=== PATIENT | female | born 1985 | race Caucasian/White ===

== ENCOUNTER 2017-08-04 20:04 | Emergency (ER) | payer BC ==
--- NOTE | 2017-08-04 20:43 | UC ---
Headache HPI - HPI Summary HPI Summary: 31 tear old female with nausea and sinus tenderness. sx x1 week--had sore throat and chills over the weekend, early this week had pain in right side; all of those sx have resolved; yesterday started with sinus headache, denies congestion, no cough. Since yesterday can not break the band headache across the head and has tried APAP and Motrin yesterday. No motrin today. (+) Photophobia slightly. RALPH 4 or 5 / 10. Not worst RALPH of life. [ End ] - History Of Current Complaint Stated Complaint: HEADACHE,NAUSEA Time Seen by Provider: 08/04/17 20:42 Hx Obtained From: Patient Onset/Duration: Gradual Onset - Allergies/Home Medications Allergies/Adverse Reactions: Allergies Allergy/AdvReac Type Severity Reaction Status Date / Time No Known Allergies Allergy Verified 08/04/17 20:46 Home Medications: Home Medications Levonorgestrel (Iud) [Mirena IUD] 20 mcg IU DAILY 08/04/17 [History Confirmed ] PMH/Surg Hx/FS Hx/Imm Hx Previously Healthy: Yes - Surgical History Surgical History: Yes Surgery Procedure, Year, and Place: 2 c-sections - Family History Known Family History: Negative: Cardiac Disease, Seizure Disorder - Social History Occupation: Employed Full-time - [employer] Lives: With Family Alcohol Use: Rare Review of Systems Eyes: Photophobia ENT: Sinus Pain/Tenderness Gastrointestinal: Nausea Neurological: Headache All Other Systems Reviewed And Are Negative: Yes Physical Exam Triage Information Reviewed: Yes Appearance: Well-Appearing, No Pain Distress, Well-Nourished Vital Signs Reviewed: Yes Eye Exam: Normal ENT Exam: Normal ENT: Positive: Pharynx normal, TM dull - left, TM red. Negative: Nasal congestion, TM bulging, Tonsillar swelling, Tonsillar exudate Dental Exam: Normal Neck exam: Normal Neck: Positive: 1 Respiratory Exam: Normal Cardiovascular Exam: Normal Musculoskeletal Exam: Normal Neurological Exam: Normal Psychological Exam: Normal Skin Exam: Normal Re-Evaluation - Re-Evaluation First Eval Change: Unchanged - still with RALPH and with nausea -- given zofran and given norco 1 pill at this time to take home and if RALPH tonight and having difficulty sleeping then can take the norco. she is agreeable Headache Course/Dx - Course Course Of Treatment: with photophobia did use toradol to try to break the RALPH and little improvement . Advised if RALPH worsens then go to ED for further eval. Not worse RALPH of life and still at 4 or 5 / 10 but persistant and since no sleep last night will offer 1 pill of norco if needed for RALPH for later tonight. - Differential Dx/Diagnosis Differential Diagnosis/HQI/PQRI: Migraine, Tension Headache Provider Diagnoses: Headache Discharge - Discharge Plan Condition: Good Disposition: HOME Patient Education Materials: Tension Headache (ED) Referrals: Norris VARGAS,Francisco Casanova [Primary Care Provider] - 4 Days
[2017-08-04 20:46] VITALS: BP 122/77
[2017-08-04] MEDS: Ketorolac INJ* 30 MG/ML 1 ML VIAL IM ONE (21:15)
[2017-08-04] MEDS: Ondansetron ODT TAB* 4 MG PO ONE (21:42)
[2017-08-04] MEDS: HYDROcodone/ACETAMIN 5-325 MG* 1 TAB PO ONE (21:43)
== END 2017-08-04 21:51 | disposition home or self-care (01) ==
LOC: UCCORT 20:04
DX: R51 Headache (principal)
CPT/HCPCS: 96372; 99212; A9270-GY; G0463; J1885